=== PATIENT | male | born 1970 | race American Indian/Alaskan Native ===

== ENCOUNTER 2021-03-27 07:45 | Day surgery (SDC) | payer OTHER ==
[2021-03-27 08:51] LABS: INR 0.86 (0.87-1.13)
[2021-03-27 08:52] LABS: Partial Thromboplastin Time 30.9 Sec. (24.2-36.6)
[2021-03-27] MEDS ORDERED: HEPARIN/NS 5000 UNIT/500ML 1,000 ML IR ONE (10:37)
[2021-03-27] MEDS ORDERED: ceFAZolin/Water 2 GM/20 ML 2 GM/20 ML SYRINGE IV ONE (10:38)
[2021-03-27] MEDS ORDERED: SODIUM CHLORIDE 0.9% 250ML 250 ML ONE (10:50)
[2021-03-27] MEDS: MIDAZOLAM 2 MG/2 ML INJ ONE ×2 (11:12→11:34)
[2021-03-27] MEDS: fentaNYL 100 MCG/2 ML INJ ONE ×2 (11:12→11:34)
[2021-03-27] MEDS: LIDOCAINE 1%/EPINEPHRINE 1:100,000 VIAL (20 ML) INFILTRATI ONE ×2 (11:15→11:34)
[2021-03-27] MEDS ORDERED: hydrALAZINE 20 MG/1 ML INJ ONE (11:45)
--- NOTE | 2021-03-27 13:01 | Short Stay Summary ---
Short Stay Documentation Date of service: 03/27/21 Narrative H&P: 51-year-old male with past medical history of end-stage renal disease with left upper extremity AV fistula creation who presents with AV fistula malfunction. - History Principal diagnosis: AV fistula malfunction H&P: obtained from office Past Medical History: ESRD Past Surgical History: Other (AV access creation) Social history: no significant social history - Allergies and Medications Current Medications: Allergies No Known Allergies Allergy (Verified 11/24/20 16:26) Home Medications Medication Instructions Recorded Confirmed Last Taken Type Ferrous Sulfate [High Potency Iron 25 mg PO DAILY 11/24/20 03/27/21 03/26/21 10:00 History 27 MG] 25 UNITS Insulin Glargine,Hum.rec.anlog 36 unit SQ DAILY 11/24/20 03/27/21 03/26/21 21:00 History [Lantus Solostar] 36 UNITS Insulin Lispro [Humalog 100 10 units SQ AC 11/24/20 03/27/21 03/26/21 21:00 History UNITS/ML Kwikpen] 10 UNITS Metoprolol [Lopressor TAB] 25 mg PO DAILY 11/24/20 03/27/21 03/26/21 History 25 MG amLODIPine 10 mg PO DAILY 11/24/20 03/27/21 03/26/21 History 10 MG hydrALAZINE [Apresoline TAB] 25 mg PO DAILY 11/24/20 03/27/21 03/26/21 History 25 MG Apixaban [Eliquis] 5 mg PO BID 03/27/21 03/27/21 03/26/21 16:00 History 10 MG Dulaglutide [Trulicity] 0.75 mg SQ 1XW 03/27/21 03/27/21 03/24/21 History 0.75 MG Rosuvastatin Calcium [Crestor] 10 mg PO DAILY 03/27/21 03/27/21 03/26/21 History 10 MG - Physical exam General appearance: no acute distress Lungs: Normal air movement Gastrointestinal: normal Extremities: abnormal (Thrill noted in left upper extremity arm) - Brief post op/procedure progress note Date of procedure: 03/27/21 Pre-op diagnosis: AV fistula malfunction Post-op diagnosis: same Procedure: Peripheral dialysis access angioplasty Anesthesia: local (With conscious sedation) Surgeon: PRACHI JOSÉ Estimated blood loss: minimal Condition: stable - Hospital course Hospital course: Patient tolerated the procedure well. No immediate postprocedural complications. Ready for discharge. Discussed with patient that the patient may need a cephalic vein elevation. - Disposition Condition at discharge: Stable Disposition: 01 HOME / SELF CARE / HOMELESS - Discharge Diagnoses (1) ESRD (end stage renal disease) on dialysis Status: Acute (2) Malfunction of arteriovenous dialysis fistula Status: Acute Short Stay Discharge Plan Activity: advance as tolerated Weight Bearing Status: Weight Bear as Tolerated Diet: renal Wound: keep clean and dry Follow up with: PRIMARY CAREMD [Primary Care Provider] - 7 Days
--- NOTE | 2021-03-27 13:11 | Operative Report ---
Operative Report Operative Report: EXAM: Ultrasound guided access of the left arm AV cephalic vein fistula Placement of a sheath towards the venous outflow Fistulogram Angioplasty of the central cephalic vein with a 7 mm x 80 mm angioplasty balloon Angioplasty of the mid and peripheral cephalic vein with a 7 mm x 60 mm angioplasty balloon DATE: 03/27/2021 DIET AID: PRACHI JOSÉ MD INDICATION: AV fistula malfunction presents for evaluation MEDICATIONS: Please see nursing report for full details. DEVICES: 7 mm x 80 mm 0.018 inch Matty angioplasty balloon 7 mm x 60 mm 0.035 inch EverCross angioplasty balloon PROCEDURE: The risks, benefits, and alternatives of the procedure were discussed and written informed consent was obtained. The patient was transported in stable condition to the angiography suite. The patient's left arm AV cephalic vein fistula was assessed by ultrasound and was patent. The patient was prepped and draped in a sterile fashion. Under ultrasound guidance, the left arm AV fistula was accessed with a 21-gauge micropuncture needle. The area was anesthetized prior to access. 0.018 inch wire was advanced through the micropuncture needle into the fistula and then the needle was exchanged for a 5 Ukrainian transitional dilator. The inner dilator and wire were removed and a 0.035 inch wire was advanced through the venous outflow. The transitional dilator was exchanged for a 7 Ukrainian short sheath. Fistulogram was performed of the venous outflow and central veins. Reflux into the arterial anastomosis was performed. Digital subtraction angiography demonstrated patency of the perianastomotic cephalic vein. Ultrasound was used to evaluate the cephalic vein anastomosis which was widely patent. The peripheral portion of the cephalic vein had an area of beginning pseudoaneurysmal change from accesses with a 40% stenosis. There was multiple collaterals arising from the peripheral to midportion of the cephalic vein with the largest collateral measuring approximately the same size as the main cephalic vein. Despite this, the fistula was mature. The midportion of the cephalic vein had a 60 to 70% stenosis. The sidebranches provided significant flow to the basilic vein and the brachial vein. The central portion of the cephalic vein was tortuous with 70 and 80% tandem stenosis. The left subclavian vein, innominate vein, and SVC were patent. Wire and catheter were negotiated through the cephalic vein and wire was passed into the IVC. I attempted to use a 0.035 inch 7 mm x 60 mm balloon to cross the central portion of the cephalic vein but this was unsuccessful. Therefore I used the 0.035 inch balloon to treat the midportion of the cephalic vein and peripheral portion of the cephalic vein. Wire was exchanged for a 0.018 inch V18 and a Matty balloon. 7 mm x 80 mm Matty balloon was used to perform angioplasty of the central portion of the cephalic vein. Digital subtraction angiography was performed demonstrating less than 10% residual stenosis of the treated segments of the cephalic vein. There is still some large collaterals noted. I considered ligating the largest collateral through a small cutdown, but I suspected that it would result in a large amount of inflammation and make it even more difficult to access the fistula. I then decided on marking the fistula with a pen. The patient was explained the plan. If this is unsuccessful, then he may need either a small cutdown to ligate the largest collateral or elevating the entire fistula. All wire was removed and the sheath site was closed with a 3-0 Vicryl suture. The sheath was then removed. Hemostasis was achieved with slight manual compression. The patient was transported from the angiography suite to the floor in stable condition. IMPRESSION: Successful peripheral dialysis access angioplasty
[2021-03-27 13:25] VITALS: BP 153/78
== END 2021-03-27 13:10 | disposition home or self-care (01) ==
LOC: CATHLABREC 07:45
PROVIDERS: ATTEND Radiology Diagnostic Radiology
DX: T82.590A Other mechanical complication of surgically created arteriovenous fistula, initial encounter (principal); I13.2 Hypertensive heart and chronic kidney disease with heart failure and with stage 5 chronic kidney disease, or end stage renal disease; E11.22 Type 2 diabetes mellitus with diabetic chronic kidney disease; N18.6 End stage renal disease; I50.9 Heart failure, unspecified; G47.30 Sleep apnea, unspecified; E66.9 Obesity, unspecified; Z79.899 Other long term (current) drug therapy; Z79.4 Long term (current) use of insulin; Z68.36 Body mass index [BMI] 36.0-36.9, adult; Z98.890 Other specified postprocedural states; Z86.2 Personal history of diseases of the blood and blood-forming organs and certain disorders involving the immune mechanism; Y92.89 Other specified places as the place of occurrence of the external cause; Y82.8 Other medical devices associated with adverse incidents
CPT/HCPCS: 36415; 36902; 36907; 84132; 85610; 85730; 99156; 99157; C1725; C1751; C1769; C1894; J0360; J0690; J1644; J2250; J3010; J3490; J7050; Q9967